=== PATIENT | male | born 2000 | race Two or more races ===

== ENCOUNTER 2022-09-08 12:13 | Emergency (ER) | payer MEDICAID ==
[~2022-09-08] VITALS: Ht 188 cm; Wt 68.0 kg
[2022-09-08 12:33] VITALS: BP 118/72
[2022-09-08] MEDS ORDERED: ONDANSETRON 4MG ODT PO ONE (14:00)
[2022-09-08] MEDS ORDERED: FAMOTIDINE 20MG TABLET PO ONE (14:00)
[2022-09-08] MEDS ORDERED: MAGNESIUM/ALUMINUM HYDROXIDE/SIMETHICONE 30ML UDC PO ONE (14:15)
[2022-09-08 14:17] LABS: BASOPHILS % 2.5 % (0.0-2.0); EOSINOPHILS % 0.9 % (0.0-5.0); HEMATOCRIT. 40.4 % (42.0-52.0); HEMOGLOBIN. 13.6 g/dL (14.0-18.0); LYMPHOCYTES % 49.9 % (20.0-50.0); MEAN CORPUSCULAR HEMOGLOBIN 32.8 pg (28.0-32.0); MEAN CORPUSCULAR VOLUME 97.9 fL (80.0-94.0); MEAN PLATELET VOLUME 6.9 fl (7.4-10.4); NEUTROPHILS % 36.7 % (40.0-76.0); PLATELET 270 x1000/uL (130-400); RED BLOOD CELL COUNT 4.13 mill/uL (4.7-6.1); RED CELL DISTRIBUTION WIDTH 13.7 % (11.6-14.6)
[2022-09-08 14:22] LABS: CHLORIDE 106 mEq/L (98-107)
[2022-09-08 14:30] LABS: ETHANOL BLOOD < 10 mg/dL
[2022-09-08] MEDS ORDERED: FAMO-135 MT (15:22)
[2022-09-08] MEDS ORDERED: MAG-55 MT (15:22)
== END 2022-09-08 15:42 | disposition home or self-care (01) ==
LOC: ER 12:13
DX: R10.13 Epigastric pain (principal)
CPT/HCPCS: 36415; 80053; 80320; 83690; 85025; 99284; Q0162; G0480